=== PATIENT | male | born 1955 | race Caucasian/White ===

== ENCOUNTER 2018-07-07 12:19 | Outpatient (REF) | payer BC, SELFPAY ==
[2018-07-11 10:07] LABS: PSA, Screening 1.2 ng/ml (0-4.5)
== END 2018-07-07 12:39 ==
LOC: NCHCN 12:19
PROVIDERS: PCP Internal Medicine; Visit Provider Physician Assistant Medical
DX: Z12.5 Encounter for screening for malignant neoplasm of prostate (principal); N40.0 Benign prostatic hyperplasia without lower urinary tract symptoms
CPT/HCPCS: 84153; 87086

== ENCOUNTER 2018-08-09 16:24 | Outpatient (CLI) | payer BC, SELFPAY ==
[2018-08-09 17:04] LABS: ALT 173 U/L (12-78); AST 479 U/L (15-37); Albumin 2.7 g/dL (3.4-5.0); Alkaline Phosphatase 330 U/L (46-116); BUN 38 mg/dL (7-18); CREATININE 1.03 mg/dL (0.70-1.30); Calcium 8.9 mg/dL (8.5-10.1); Chloride 94 mmol/L (98-107); Glucose 118 mg/dL (70-100); Sodium 147 mmol/L (136-145); Total Protein 5.7 g/dL (6.4-8.2)
[2018-08-09 17:17] LABS: Anion Gap 7.99999 mmol/L (3-11); CO2 > 45.0 mmol/L (21.0-32.0)
[2018-08-09 17:44] LABS: Potassium 1.9 mmol/L (3.5-5.1)
[2018-08-09 17:48] LABS: Abs Immature Grans 0.69 k/cumm (0.0-0.09); HCT 36.3 % (40.0-50.0); HGB 12.3 g/dL (13.5-17.5); Mean Corp. HGB Concentration 33.9 g/dL (32.0-36.0); Mean Corpuscular Hemoglobin 34.6 pg (27.0-33.0); Mean Platelet Volume 12.6 fL (8.0-11.0); RBC 3.56 m/cumm (4.50-6.00); RBC Distribution Width 14.1 % (11.8-14.1); White Blood Cell Count 16.95 k/cumm (4.4-10.8)
[2018-08-09 19:06] LABS: Platelet Count 47 x1000/uL (130-400)
[2018-08-09 19:07] LABS: Absolute Lymphocyte Count 0.51 k/cumm (1.2-3.4); Absolute Monocyte Count 0.34 k/cumm (0.11-0.7); Diff Comment Manual Differential; Nucleated RBC 1 /100WBC
[2018-08-09 19:14] LABS: Macrocytosis 2+
[2018-08-10 12:10] LABS: Magnesium 2.4 mg/dL (1.8-2.4)
== END 2018-08-09 16:44 ==
PROVIDERS: PCP Internal Medicine; Visit Provider Internal Medicine
DX: E87.6 Hypokalemia (principal); C34.90 Malignant neoplasm of unspecified part of unspecified bronchus or lung
CPT/HCPCS: 36415; 80053; 83735; 85025

== ENCOUNTER 2018-08-11 08:10 | Outpatient (CLI) | payer BC, SELFPAY ==
[2018-08-11 09:03] LABS: ALT 199 U/L (12-78); AST 309 U/L (15-37); Albumin 2.5 g/dL (3.4-5.0); Alkaline Phosphatase 351 U/L (46-116); BUN 35 mg/dL (7-18); Bilirubin, Total 1.4 mg/dL (0.2-1.0); Calcium 8.3 mg/dL (8.5-10.1); Chloride 98 mmol/L (98-107); Glucose 119 mg/dL (70-100); Magnesium 2.1 mg/dL (1.8-2.4); Sodium 145 mmol/L (136-145); Total Protein 5.4 g/dL (6.4-8.2)
[2018-08-11 09:07] LABS: Anion Gap 1.99999 mmol/L (3-11); CO2 > 45.0 mmol/L (21.0-32.0)
[2018-08-11 09:10] LABS: Potassium 2.3 mmol/L (3.5-5.1)
== END 2018-08-11 08:30 ==
PROVIDERS: PCP Internal Medicine; Visit Provider Internal Medicine
DX: C78.7 Secondary malignant neoplasm of liver and intrahepatic bile duct (principal); E87.6 Hypokalemia
CPT/HCPCS: 36415; 80053; 83735

== ENCOUNTER 2018-08-12 00:58 | Outpatient (CLI) | payer BC, SELFPAY ==
[2018-08-12 08:10] LABS: Abs Immature Grans 0.09 k/cumm (0.0-0.09); Absolute Basophil Count 0.01 k/cumm (0.0-0.2); Absolute Eosinophil Count 0.02 k/cumm (0.0-0.7); Absolute Lymphocyte Count 0.56 k/cumm (1.2-3.4); Absolute Neutrophil Count 9.14 k/cumm (1.2-6.7); Basophils % 0.1; Eosinophils % 0.2; HCT 27.8 % (40.0-50.0); HGB 9.3 g/dL (13.5-17.5); Immature Grans % 0.9; Lymphocytes % 5.6; Mean Corp. HGB Concentration 33.5 g/dL (32.0-36.0); Mean Corpuscular Hemoglobin 34.4 pg (27.0-33.0); Mean Platelet Volume 11.7 fL (8.0-11.0); Neutrophils % 91.2; RBC Distribution Width 13.8 % (11.8-14.1); White Blood Cell Count 10.02 k/cumm (4.4-10.8)
[2018-08-12 08:16] LABS: ALT 188 U/L (12-78); AST 173 U/L (15-37); Albumin 2.4 g/dL (3.4-5.0); Alkaline Phosphatase 289 U/L (46-116); Anion Gap 2.4 mmol/L (3-11); BUN 36 mg/dL (7-18); CO2 42.6 mmol/L (21.0-32.0); CREATININE 0.69 mg/dL (0.70-1.30); Calcium 8.1 mg/dL (8.5-10.1); Chloride 101 mmol/L (98-107); Glucose 119 mg/dL (70-100); Magnesium 2.1 mg/dL (1.8-2.4); Sodium 146 mmol/L (136-145); Total Protein 5.1 g/dL (6.4-8.2)
[2018-08-12 09:21] LABS: Potassium 2.5 mmol/L (3.5-5.1)
[2018-08-12 09:31] LABS: Platelet Count 15 x1000/uL (130-400)
[2018-08-12 09:34] LABS: Diff Comment PLT Morph Reviewed; Macrocytosis 1+; Polychromasia Present
== END 2018-08-12 01:18 ==
PROVIDERS: PCP Internal Medicine; Visit Provider Internal Medicine
DX: C78.7 Secondary malignant neoplasm of liver and intrahepatic bile duct (principal); E87.6 Hypokalemia
CPT/HCPCS: 36415; 80053; 83735; 85025

== ENCOUNTER 2018-08-12 12:20 | Emergency (ER) | payer BC, SELFPAY ==
[2018-08-12] VITALS (78 sets, daily range): BP systolic 156–171; BP diastolic 76–87; PULSE 80–95; RESP 11–30; TEMP 37; O2SAT 83–96
[2018-08-12 13:14] LABS: Abs Immature Grans 0.06 k/cumm (0.0-0.09); Absolute Basophil Count 0.01 k/cumm (0.0-0.2); Absolute Eosinophil Count 0.03 k/cumm (0.0-0.7); Absolute Lymphocyte Count 0.56 k/cumm (1.2-3.4); Absolute Monocyte Count 0.18 k/cumm (0.11-0.7); Absolute Neutrophil Count 8.54 k/cumm (1.2-6.7); Basophils % 0.1; Eosinophils % 0.3; HCT 26.6 % (40.0-50.0); HGB 8.8 g/dL (13.5-17.5); Immature Grans % 0.6; Mean Corp. HGB Concentration 33.1 g/dL (32.0-36.0); Mean Corpuscular Hemoglobin 34.4 pg (27.0-33.0); Mean Corpuscular Volume 103.9 fL (80-95); Monocytes % 1.9; Neutrophils % 91.1; RBC 2.56 m/cumm (4.50-6.00); RBC Distribution Width 13.9 % (11.8-14.1); White Blood Cell Count 9.38 k/cumm (4.4-10.8)
[2018-08-12 13:20] LABS: INR 1.1 (1.0-3.5); PTT Activated 18.7 sec (21.0-31.4); Prothrombin Time 10.3 sec (9.3-10.8)
[2018-08-12 13:37] LABS: Diff Comment PLT Morph Reviewed; Platelet Count 12 x1000/uL (130-400)
[2018-08-12 13:39] LABS: ALT 184 U/L (12-78); AST 160 U/L (15-37); Albumin 2.3 g/dL (3.4-5.0); Alkaline Phosphatase 272 U/L (46-116); Anion Gap 3.9 mmol/L (3-11); BUN 37 mg/dL (7-18); Bilirubin, Total 0.8 mg/dL (0.2-1.0); CO2 40.1 mmol/L (21.0-32.0); CREATININE 0.63 mg/dL (0.70-1.30); Calcium 7.8 mg/dL (8.5-10.1); Chloride 103 mmol/L (98-107); D-Dimer > 7500 ng/mlFEU (<500); Glucose 157 mg/dL (70-100); Sodium 147 mmol/L (136-145); Total Protein 4.9 g/dL (6.4-8.2); Troponin I 0.04 ng/mL (0.00-0.06)
[2018-08-12 13:43] LABS: Potassium 2.4 mmol/L (3.5-5.1)
--- NOTE | 2018-08-12 13:49 | DI.CT_ITS ---
SYMPTOMS/DIAGNOSIS: COUGH, SHORTNESS OF BREATH, CANCER, HX OF MAC, CHEST PAIN, GI BLEED CHEST, ABDOMEN AND PELVIS CTA: CT angiography was performed with multi slice acquisition and multi planar and 3D reconstruction. CT angiography of the chest, abdomen and pelvis was performed with intravenous infusion of 100 cc's of Omnipaque 350. The patient reportedly has known lung carcinoma. There is a large right hilar mass which markedly narrows the right upper lobe pulmonary artery and portions of right lower and middle lobe arteries proximally. No pulmonary embolism identified. There are multiple intrapulmonary nodules. The largest a pleural based nodule seen anteriorly in the right upper lobe measuring up to about 3 cm in greatest diameter. There are severe pulmonary emphysematous changes. There is a moderate size right pleural effusion and a tiny left pleural effusion. No thoracic aortic dissection or aneurysm identified. There appears to be mild narrowing of right upper lobe pulmonary artery and this is encased by tumor. Otherwise the tracheobronchial tree appears grossly intact. There is an apparent nonocclusive dissection of the celiac trunk. No additional dissection or aneurysm identified in the abdominal aorta or main branch vessels to the level of the iliac bifurcations. Note is made of contrast material in the stomach. The patient has reportedly had no oral contrast material and the patient reported GI bleed. The findings are suggestive of acute arterial bleeding in the stomach. There is an approximately 3 cm in diameter right adrenal mass. The findings are highly suggestive of metastatic disease with a heterogeneous appearance of the mass. Areas of questionable heterogeneity also noted in the liver, possible hepatic metastatic disease. The kidneys are grossly unremarkable except for bilateral renal cysts. The pancreas is unremarkable. No biliary dilatation seen. The gallbladder is contracted. No gross abdominal adenopathy seen. There is mild anterior compression fracture of the T 12 vertebral body and there is an apparent lytic lesion of the vertebral body suspicious for metastatic lesion. Rounded lytic focus is also noted in L 3 vertebral body and there are multiple other areas of vertebral decreased attenuation in thoracic and lumbar spine which may represent metastatic lesions. CONCLUSION: 1. No evidence of pulmonary embolic disease but there is marked narrowing of right upper lobe pulmonary artery by known right hilar/mediastinal mass. 2. Apparent acute arterial hemorrhage into the gastric lumen. 3. Multiple presumed intrapulmonary metastases. 4. T 12 pathologic compression fracture consistent with metastatic disease, no gross deformity of the spinal canal seen. 5. Multiple additional suspected vertebral metastatic lesions. 6. Presumed right adrenal metastasis. 7. Probable hepatic metastases.
[2018-08-12 13:56] LABS: Bilirubin Negative (Negative); Blood Small (Negative); Clarity Clear; Glucose Negative (Negative); Ketones Negative (Negative); Leukocyte Esterase Negative (Negative); Nitrite Negative (Negative); Specific Gravity 1.015 (1.005-1.025)
[2018-08-12 14:09] LABS: Epithelial Cells Rare HPF (Negative); WBC 0-2 HPF (0-5)
[2018-08-12 14:10] LABS: Bacteria Negative HPF (Negative); C & S Indicated? No; Casts Negative LPF (Negative); Crystals Few Amorphous HPF (Negative); Mucus Trace (Negative)
[2018-08-12] MEDS: Pantoprazole 40 MG VIAL IVP (14:16)
[2018-08-12] MEDS: POTASSIUM CHLORIDE 20 MEQ/100 ML BAG 50 MEQ IVPB (14:16)
[2018-08-12] MEDS: Potassium Chloride 20 MEQ TABCR 40 MEQ PO (14:17)
[2018-08-12] MEDS: Omnipaque 350 MG/ML 100 ML BTL IJ (14:40)
--- NOTE | 2018-08-12 14:40 | ED.GENADUL_ITS ---
Discharge Plan Disposition Patient Disposition: [facility] Condition: Serious Discharge Details Chief Complaint: GI Bleed Clinical Impression: Acute hypokalemia, Thrombocytopenia, Acute upper gastrointestinal bleeding, Celiac artery dissection, Lung cancer Reason For Visit: ERIKA Primary Care Provider: Shayne Fernandes ED Provider: Michael Joe Home Meds and New Rx's Prescriptions: No Action prednisolone 5 mg (21 tabs) Tablets,Dose Pack 5 mg PO DAILY RF: 0 fluoxetine 40 mg Capsule 40 mg PO DAILY RF: 0 metoprolol succinate 100 mg Tablet Extended Release 24 Hr 100 mg PO DAILY RF: 0 clonazepam 1 mg Tablet 1 mg PO DAILY RF: 0 tamsulosin 0.4 mg Capsule 0.4 mg PO DAILY RF: 0 furosemide 20 mg Tablet 20 mg PO DAILY RF: 0 tiotropium bromide [Spiriva Respimat] 2.5 mcg/actuation Mist 2.5 mcg Inhalation DAILY RF: 0 fluticasone-vilanterol [Breo Ellipta] 100-25 mcg/dose Blister With Device 100 mcg Inhalation DAILY RF: 0 Medical Decision Making This is a 63-year-old male with a 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 This morning he noticed a few episodes of dark tarry stool with some bright red blood. Oncology noted that his platelets were 248 in February, 47 3 days ago, and 13 today. His hemoglobin was 15 in February, 12, 3 days ago, and 8.8 today. Additionally the patient does complain of some chest pain. Here in the emergency department the patient is hemodynamically stable. Laboratory workup clearly demonstrates an acute drop in his hemoglobin and his platelets. He has no abdominal pain or tenderness on exam. I started the patient on Protonix, rehydrated with fluids, and have ordered platelets however unfortunately there are no platelets currently here at the hospital and so they have to be sent from the [facility]. This process was immediately started upon the patient's arrival. With his chest pain and risk for pulmonary embolism we did elect to get a d-dimer which is notably elevated. CT angiogram was ordered of the chest abdomen and pelvis, which demonstrates multiple abnormalities, some of which are known. The patient has a known mass, it is compressing on the pulmonary artery. Over there is no evidence of pulmonary embolism. Patient also does show evidence concerning for celiac artery dissection per radiology. In addition to this there appears to be some contrast in the patient's stomach, this was a non-oral contrast study suggesting an active GI bleed in the upper stomach. The patient's current hemoglobin level it is felt that additional blood is not indicated at this time however platelets are clearly our primary concern. EKG does show evidence of questionable 1 mm depression in V4 but no reciprocal ST elevation. Troponin is 0.04. Clearly the patient is not a candidate for heparinization or TPA at this time secondary to his thrombocytopenia and active bleeding which could be life- threatening. He continues to remain hemodynamically stable. Potassium is noted to be 2.4, and we are correcting this with 40 of oral, and 20 of IV at this time. Additionally the patient's BUN creatinine ratio demonstrates notable elevation in his BUN suggesting a bleed proximal to the ligament of Treitz which I feel is confirmed by the CT scan findings. Because of the patient's clear need for endoscopy we did contact [facility]. I discussed the case with both the hospitalist and the fine arts instructor Dr Russell and Dr Swenson. The case was reviewed with them, including the patient's current status. Although they have no [facility] beds, with the patient's multiple comorbidities and issues I did suggest that the patient be admitted to the stepdown unit and they agree, they do have beds in the stepdown unit available. Patient will be transferred by [facility] to [facility] immediately. Initially by the time [facility] was supposed to arrive the platelets only 45 minutes out, however [facility] did contact myself on the person transferring the platelets and they are over an hour and 15 minutes away still. Because of the patient's clear need for definitive management with endoscopy, we discussed this with the fine arts instructor and they agree and recommend immediate transfer down. I have extensively reviewed the treatment plan with the patient. I have addressed all patient concerns at this time. I have also discussed the plan with the admitting physician and they agree with the current assessment and plan and have agreed to assume responsibility for the patient. All parties demonstrate verbal understanding and agreement with our assessment and plan at this time. EKG 12: 24 Rate 83, intervals normal, sinus rhythm, questionable 1 mm depression in V5, less than 1 mm depression in V4, no ST elevations. Inverted T wave in V1 and V3. No Q waves. No EKG evidence of STEMI. Patient Name: PHYLLIS GIRFFIN #: [id number]: ER Ordering Provider: Michael Joe #: [id number]: REG ER Primary Care Provider: Shayne Fernandes Date of Exam: 08/12/18ex: M : 1955ge: 63 Exam(s) a CT:CT thorax & abdomen CTA SYMPTOMS/DIAGNOSIS: COUGH, SHORTNESS OF BREATH, CANCER, HX OF MAC, CHEST PAIN, GI BLEED CHEST, ABDOMEN AND PELVIS CTA: CT angiography was performed with multi slice acquisition and multi planar and 3D reconstruction. CT angiography of the chest, abdomen and pelvis was performed with intravenous infusion of 100 cc's of Omnipaque 350. The patient reportedly has known lung carcinoma. There is a large right hilar mass which markedly narrows the right upper lobe pulmonary artery and portions of right lower and middle lobe arteries proximally. No pulmonary embolism identified. There are multiple intrapulmonary nodules. The largest a pleural based nodule seen anteriorly in the right upper lobe measuring up to about 3 cm in greatest diameter. There are severe pulmonary emphysematous changes. There is a moderate size right pleural effusion and a tiny left pleural effusion. No thoracic aortic dissection or aneurysm identified. There appears to be mild narrowing of right upper lobe pulmonary artery and this is encased by tumor. Otherwise the tracheobronchial tree appears grossly intact. There is an apparent nonocclusive dissection of the celiac trunk. No additional dissection or aneurysm identified in the abdominal aorta or main branch vessels to the level of the iliac bifurcations. Note is made of contrast material in the stomach. The patient has reportedly had no oral contrast material and the patient reported GI bleed. The findings are suggestive of acute arterial bleeding in the stomach. There is an approximately 3 cm in diameter right adrenal mass. The findings are highly suggestive of metastatic disease with a heterogeneous appearance of the mass. Areas of questionable heterogeneity also noted in the liver, possible hepatic metastatic disease. The kidneys are grossly unremarkable except for bilateral renal cysts. The pancreas is unremarkable. No biliary dilatation seen. The gallbladder is contracted. No gross abdominal adenopathy seen. There is mild anterior compression fracture of the T 12 vertebral body and there is an apparent lytic lesion of the vertebral body suspicious for metastatic lesion. Rounded lytic focus is also noted in L 3 vertebral body and there are multiple other areas of vertebral decreased attenuation in thoracic and lumbar spine which may represent metastatic lesions. CONCLUSION: 1. No evidence of pulmonary embolic disease but there is marked narrowing of right upper lobe pulmonary artery by known right hilar/mediastinal mass. 2. Apparent acute arterial hemorrhage into the gastric lumen. 3. Multiple presumed intrapulmonary metastases. 4. T 12 pathologic compression fracture consistent with metastatic disease, no gross deformity of the spinal canal seen. 5. Multiple additional suspected vertebral metastatic lesions. 6. Presumed right adrenal metastasis. 7. Probable hepatic metastases. HPI General Date/Time Provider Initiated Documentation: 08/12/18 12:32 . HPI Narrative: This is a 63-year-old male with a past medical history of Mycobacterium avium complex for which she has not taken antibiotics for the last 2 weeks, COPD, hemochromatosis, small cell lung cancer who is on day 2 of 3 for chemotherapy with carboplatin and etoposide who receives his oncology management at [facility]. He presents today after being sent by oncology for thrombus cytopenia and GI bleed as well as some chest pain and shortness of breath. Patient states that last night and this morning he noticed some dark tarry stool as well as some bright red blood in his stool. He has never had a GI bleed before, and denies any history of this in the past. He denies any abdominal pain, or vomiting. Chest pain started prior to arrival, he describes it as a mild pressure-like sensation with mild shortness of breath. Potential pleuritic component as well. He denies any hemoptysis, but he does admit to a cough however this is obfuscated by his chronic pulmonary symptoms from his Mycobacterium avium complex for which she was receiving treatment for many weeks. Of note the patient has been dealing with chronic hypo-Kalemia. The patient denies any other complaints at this time. He denies any other modifying factors. He denies any fevers, chills, history of PE, cardiac disease , history of GI bleed, or other complaint. The patient quit smoking within the past 6 months. He denies any IV or illicit drug use per Related Data Home Medications Medication Instructions Recorded Confirmed clonazepam 1 mg PO DAILY 08/12/18 08/12/18 fluoxetine 40 mg PO DAILY 08/12/18 08/12/18 fluticasone-vilanterol [Breo 100 mcg INHALATION DAILY 08/12/18 08/12/18 Ellipta] furosemide 20 mg PO DAILY 08/12/18 08/12/18 metoprolol succinate 100 mg PO DAILY 08/12/18 08/12/18 prednisolone 5 mg PO DAILY 08/12/18 08/12/18 tamsulosin 0.4 mg PO DAILY 08/12/18 08/12/18 tiotropium bromide [Spiriva 2.5 mcg INHALATION DAILY 08/12/18 08/12/18 Respimat] Allergies Allergy/AdvReac Type Severity Reaction Status Date / Time Penicillins Allergy Severe Unverified 08/12/18 12:58 General Stated Complaint: GI Bleed LUCY: 2 Review of Systems Review of Systems All systems reviewed & are unremarkable except as noted in HPI and below PFSH Social History Smoking/Tobacco Use Status: Former Tobacco Use Social History Smoking/Tobacco Use Status: Former Tobacco Use Exam Narrative Exam Narrative: 1.Const: Well-nourished, Well-developed, appearing stated age 2.Eyes: PERRL, no conjunctival injection, and symmetrical lids. 3.ENT: Atraumatic external nose and ears. Moist MM. Neck: Symmetric, trachea midline, No thyromegaly. 4.CVS: +S1/S2, No murmurs or gallops. Peripheral pulses 2+ and equal in all extremities. Brisk capillary refill in all extremities. 5.RESP: Unlabored respiratory effort. Rhonchorous breath sounds throughout. Crackles throughout. No reproducible chest pain. 6.GI: Soft, Nontender/Nondistended, No hepatosplenomegaly. No guarding or rebound. Rectal exam demonstrates no sugey blood, stool is slightly darker in color. Hemoccult is positive. 7.MSK: Normocephalic/Atraumatic, Extremities w/o deformity or ttp No cyanosis or clubbing, Normal movement of all extremities. No calf tenderness 8.Skin: Warm, Dry. No rashes or lesions. 9.Neuro: cake cutter machine II-XII grossly intact. Sensation grossly intact, no focal neurologic deficits. 10.Psych: (AAO) x3. Appropriate mood and affect Course Vital Signs Temperature 37.0 C 08/12/18 12:17 Pulse 84 08/12/18 12:17 Respiratory Rate 24 08/12/18 12:17 Blood Pressure 169/83 H 08/12/18 12:17 Pulse Oximetry 94 L 08/12/18 12:17 Temperature 37.0 C 08/12/18 12:17 Temperature Source Skin 08/12/18 12:17 Pulse 81 08/12/18 13:46 Pulse 81 08/12/18 14:00 Respiratory Rate 19 08/12/18 14:00 Blood Pressure 171/85 H 08/12/18 13:46 Blood Pressure Mean 107 08/12/18 13:46 Blood Pressure Position Supine 08/12/18 12:17 Pulse Oximetry 94 L 08/12/18 14:00 Oxygen Delivery Method Nasal Cannula 08/12/18 13:41 Oxygen Flow Rate 2 08/12/18 13:41 Comment 08/12/18 12:17 Lab/Test Results Lab/Test Results: Laboratory Tests Range/Units 08/12/18 08/12/18 08/12/18 12:40 12:40 12:40 WBC (4.4-10.8) k/cumm 9.38 RBC (4.50-6.00) m/cumm 2.56 L Hgb (13.5-17.5) g/dL 8.8 L Hct (40.0-50.0) % 26.6 L MCV (80-95) fL 103.9 H MCH (27.0-33.0) pg 34.4 H MCHC (32.0-36.0) g/dL 33.1 RDW (11.8-14.1) % 13.9 Plt Count (130-400) x1000/uL 12 L* MPV (8.0-11.0) fL Immature Gran % 0.6 Neutrophils % 91.1 Lymphocytes % 6.0 Monocytes % 1.9 Eosinophils % 0.3 Basophils % 0.1 Absolute Neutrophils (1.2-6.7) k/cumm 8.54 H Absolute Lymphocytes (1.2-3.4) k/cumm 0.56 L Absolute Monocytes (0.11-0.7) k/cumm 0.18 Absolute Eosinophils (0.0-0.7) k/cumm 0.03 Absolute Basophils (0.0-0.2) k/cumm 0.01 Differential Comment Plt morph reviewed PT (9.3-10.8) sec 10.3 INR (1.0-3.5) 1.1 APTT (21.0-31.4) sec 18.7 L D-Dimer (<500) ng/mlFEU > 7500 H Sodium (136-145) mmol/L 147 H Potassium (3.5-5.1) mmol/L 2.4 L* Chloride (98-107) mmol/L 103 Carbon Dioxide (21.0-32.0) mmol/L 40.1 H Anion Gap (3-11) mmol/L 3.9 BUN (7-18) mg/dL 37 H Creatinine (0.70-1.30) mg/dL 0.63 L Estimated GFR/1.73 m2 (mL/min/1.73m2) >= 60.00 Glucose (70-100) mg/dL 157 H Calcium (8.5-10.1) mg/dL 7.8 L Total Bilirubin (0.2-1.0) mg/dL 0.8 AST (15-37) U/L 160 H ALT (12-78) U/L 184 H Alkaline Phosphatase (46-116) U/L 272 H Troponin I (0.00-0.06) ng/mL 0.04 Total Protein (6.4-8.2) g/dL 4.9 L Albumin (3.4-5.0) g/dL 2.3 L Urine Color (Yellow) Urine Clarity Urine pH (5-8) Ur Specific [place] (1.005-1.025) Urine Protein (Negative) mg/dL Urine Ketones (Negative) mg/dL Urine Blood (Negative) Urine Nitrite (Negative) Urine Bilirubin (Negative) Urine Urobilinogen (Up TO 0.2) EU/dL Ur Leukocyte Esterase (Negative) Urine RBC (0-2) Urine WBC (0-5) HPF Ur Epithelial Cells (Negative) HPF Urine Crystals (Negative) HPF Urine Bacteria (Negative) HPF Urine Casts (Negative) LPF Urine Mucus (Negative) Ur Culture Indicated? Urine Glucose (Negative) mg/dL Patient ABO/Rh Antibody Screen Range/Units 08/12/18 08/12/18 12:40 13:48 WBC (4.4-10.8) k/cumm RBC (4.50-6.00) m/cumm Hgb (13.5-17.5) g/dL Hct (40.0-50.0) % MCV (80-95) fL MCH (27.0-33.0) pg MCHC (32.0-36.0) g/dL RDW (11.8-14.1) % Plt Count (130-400) x1000/uL MPV (8.0-11.0) fL Immature Gran % Neutrophils % Lymphocytes % Monocytes % Eosinophils % Basophils % Absolute Neutrophils (1.2-6.7) k/cumm Absolute Lymphocytes (1.2-3.4) k/cumm Absolute Monocytes (0.11-0.7) k/cumm Absolute Eosinophils (0.0-0.7) k/cumm Absolute Basophils (0.0-0.2) k/cumm Differential Comment PT (9.3-10.8) sec INR (1.0-3.5) APTT (21.0-31.4) sec D-Dimer (<500) ng/mlFEU Sodium (136-145) mmol/L Potassium (3.5-5.1) mmol/L Chloride (98-107) mmol/L Carbon Dioxide (21.0-32.0) mmol/L Anion Gap (3-11) mmol/L BUN (7-18) mg/dL Creatinine (0.70-1.30) mg/dL Estimated GFR/1.73 m2 (mL/min/1.73m2) Glucose (70-100) mg/dL Calcium (8.5-10.1) mg/dL Total Bilirubin (0.2-1.0) mg/dL AST (15-37) U/L ALT (12-78) U/L Alkaline Phosphatase (46-116) U/L Troponin I (0.00-0.06) ng/mL Total Protein (6.4-8.2) g/dL Albumin (3.4-5.0) g/dL Urine Color (Yellow) Yellow Urine Clarity Clear Urine pH (5-8) 7.0 Ur Specific [place] (1.005-1.025) 1.015 Urine Protein (Negative) mg/dL 30 H Urine Ketones (Negative) mg/dL Negative Urine Blood (Negative) Small H Urine Nitrite (Negative) Negative Urine Bilirubin (Negative) Negative Urine Urobilinogen (Up TO 0.2) EU/dL 2.0 H Ur Leukocyte Esterase (Negative) Negative Urine RBC (0-2) 10-20 H Urine WBC (0-5) HPF 0-2 Ur Epithelial Cells (Negative) HPF Rare Urine Crystals (Negative) HPF Few amorphous Urine Bacteria (Negative) HPF Negative Urine Casts (Negative) LPF Negative Urine Mucus (Negative) Trace Ur Culture Indicated? No Urine Glucose (Negative) mg/dL Negative Patient ABO/Rh A Positive Antibody Screen Negative
--- NOTE | 2018-08-12 15:26 | NUR.NOTE ---
pt unable to provide stool sample. pt attempted 3 2 times over duration of stay Nursing Note:
== END 2018-08-12 15:17 | disposition short-term general hospital (02) ==
PROVIDERS: Emergency Provider Student in an Organized Health Care Education/Training Program; PCP Internal Medicine
DX: I77.79 Dissection of other specified artery (principal); K92.2 Gastrointestinal hemorrhage, unspecified; D69.6 Thrombocytopenia, unspecified; E87.6 Hypokalemia; R07.9 Chest pain, unspecified; Z79.899 Other long term (current) drug therapy; C34.90 Malignant neoplasm of unspecified part of unspecified bronchus or lung; J44.9 Chronic obstructive pulmonary disease, unspecified; Z87.891 Personal history of nicotine dependence; R06.02 Shortness of breath
CPT/HCPCS: 36415; 71275; 74175; 80053; 86850; 86900; 86901; 93005; 96365; 96375; 99285; 81003; 81015; 84484; 85025; 85379; 85610; 85730; 93010; J3480; J3490

== ENCOUNTER 2018-09-09 13:30 | Outpatient (RCR) | payer BC, SELFPAY ==
[2018-09-02 08:30] LABS: Abs Immature Grans 0.12 k/cumm (0.0-0.09); Absolute Basophil Count 0.02 k/cumm (0.0-0.2); Absolute Monocyte Count 1.26 k/cumm (0.11-0.7); Absolute Neutrophil Count 16.62 k/cumm (1.2-6.7); Basophils % 0.1; HCT 30.6 % (40.0-50.0); HGB 9.8 g/dL (13.5-17.5); Immature Grans % 0.6; Mean Corpuscular Hemoglobin 35.6 pg (27.0-33.0); Mean Corpuscular Volume 111.3 fL (80-95); Mean Platelet Volume 10.3 fL (8.0-11.0); Monocytes % 6.8; Neutrophils % 89.5; RBC 2.75 m/cumm (4.50-6.00); White Blood Cell Count 18.57 k/cumm (4.4-10.8)
[2018-09-02 08:34] LABS: Absolute Lymphocyte Count 0.56 k/cumm (1.2-3.4)
[2018-09-02 08:44] LABS: Anisocytosis 3+; Diff Comment RBC Morph Reviewed; Macrocytosis 2+; Microcytosis 1+; Platelet Count 333 x1000/uL (130-400); Polychromasia Present
[2018-09-02 08:45] LABS: Poikilocytes 1+
[2018-09-02 08:57] LABS: ALT 100 U/L (12-78); AST 46 U/L (15-37); Albumin 2.4 g/dL (3.4-5.0); Alkaline Phosphatase 153 U/L (46-116); Anion Gap 6.3 mmol/L (3-11); BUN 25 mg/dL (7-18); Bilirubin, Total 0.5 mg/dL (0.2-1.0); CO2 34.7 mmol/L (21.0-32.0); CREATININE 0.74 mg/dL (0.70-1.30); Calcium 8.6 mg/dL (8.5-10.1); Chloride 104 mmol/L (98-107); Glucose 121 mg/dL (70-100); Potassium 3.8 mmol/L (3.5-5.1); Sodium 145 mmol/L (136-145); Total Protein 5.6 g/dL (6.4-8.2)
[2018-09-02] MEDS: Normal Saline Flush 10 ML SYR IVP (09:01)
[2018-09-09] MEDS: Normal Saline Flush 10 ML SYR IVP (13:40)
[2018-09-09] MEDS: Heparin 500 UNITS/5 ML SYRINGE IV (13:40)
[2018-09-09 14:16] LABS: Abs Immature Grans 0.04 k/cumm (0.0-0.09); Absolute Lymphocyte Count 1.25 k/cumm (1.2-3.4); Absolute Monocyte Count 0.35 k/cumm (0.11-0.7); Absolute Neutrophil Count 3.61 k/cumm (1.2-6.7); HCT 27.8 % (40.0-50.0); HGB 8.7 g/dL (13.5-17.5); Immature Grans % 0.8; Lymphocytes % 23.8; Mean Corp. HGB Concentration 31.3 g/dL (32.0-36.0); Mean Corpuscular Hemoglobin 35.1 pg (27.0-33.0); Mean Corpuscular Volume 112.1 fL (80-95); Mean Platelet Volume 10.1 fL (8.0-11.0); Monocytes % 6.7; Neutrophils % 68.7; Platelet Count 242 x1000/uL (130-400); RBC 2.48 m/cumm (4.50-6.00); RBC Distribution Width 19.8 % (11.8-14.1); White Blood Cell Count 5.25 k/cumm (4.4-10.8)
[2018-09-09 14:31] LABS: ALT 69 U/L (12-78); AST 25 U/L (15-37); Albumin 2.4 g/dL (3.4-5.0); Alkaline Phosphatase 149 U/L (46-116); Anion Gap 3.3 mmol/L (3-11); BUN 16 mg/dL (7-18); Bilirubin, Total 0.3 mg/dL (0.2-1.0); CO2 33.7 mmol/L (21.0-32.0); CREATININE 0.89 mg/dL (0.70-1.30); Chloride 103 mmol/L (98-107); Glucose 120 mg/dL (70-100); Potassium 4.6 mmol/L (3.5-5.1); Sodium 140 mmol/L (136-145); Total Protein 6.1 g/dL (6.4-8.2)
== END 2018-09-12 23:59 | disposition home or self-care (01) ==
LOC: INF 13:30
PROVIDERS: PCP Internal Medicine; Visit Provider Internal Medicine
DX: C78.7 Secondary malignant neoplasm of liver and intrahepatic bile duct (principal); C34.90 Malignant neoplasm of unspecified part of unspecified bronchus or lung; E87.6 Hypokalemia; Z45.2 Encounter for adjustment and management of vascular access device
CPT/HCPCS: 36591; 80053; 85025

== ENCOUNTER 2018-10-10 01:18 | Outpatient (RCR) | payer BC, SELFPAY ==
[2018-09-19] MEDS: Normal Saline Flush 10 ML SYR IVP (12:12)
[2018-09-19] MEDS: Heparin 500 UNITS/5 ML SYRINGE IV (12:12)
[2018-09-19 12:20] LABS: HCT 34.3 % (40.0-50.0); HGB 11.1 g/dL (13.5-17.5); Mean Corp. HGB Concentration 32.4 g/dL (32.0-36.0); Mean Corpuscular Hemoglobin 36.3 pg (27.0-33.0); Mean Corpuscular Volume 112.1 fL (80-95); Mean Platelet Volume 9.3 fL (8.0-11.0); Platelet Count 419 x1000/uL (130-400); RBC 3.06 m/cumm (4.50-6.00); RBC Distribution Width 20.5 % (11.8-14.1); White Blood Cell Count 5.35 k/cumm (4.4-10.8)
[2018-09-19 12:32] LABS: ALT 65 U/L (12-78); AST 27 U/L (15-37); Albumin 2.8 g/dL (3.4-5.0); Alkaline Phosphatase 200 U/L (46-116); Anion Gap 6.6 mmol/L (3-11); BUN 23 mg/dL (7-18); Bilirubin, Total 0.3 mg/dL (0.2-1.0); CO2 32.4 mmol/L (21.0-32.0); CREATININE 0.83 mg/dL (0.70-1.30); Calcium 9.1 mg/dL (8.5-10.1); Chloride 103 mmol/L (98-107); Glucose 103 mg/dL (70-100); LDH 336 U/L (85-227); Potassium 3.4 mmol/L (3.5-5.1); Sodium 142 mmol/L (136-145); Total Protein 6.2 g/dL (6.4-8.2)
[2018-09-19 12:38] LABS: Absolute Lymphocyte Count 1.12 k/cumm (1.2-3.4); Absolute Monocyte Count 1.18 k/cumm (0.11-0.7); Absolute Neutrophil Count 2.35 k/cumm (1.2-6.7)
[2018-09-19 12:39] LABS: Anisocytosis 3+; Diff Comment Manual Differential; Hypochromasia 2+; Macrocytosis 2+; Microcytosis 1+; Polychromasia Present; Schistocytes 1+
[2018-09-19 12:40] LABS: Poikilocytes 2+
[2018-10-10] MEDS: Normal Saline Flush 10 ML SYR IVP (12:04)
[2018-10-10] MEDS: Heparin 500 UNITS/5 ML SYRINGE IV (12:04)
[2018-10-10 12:10] LABS: HCT 31.1 % (40.0-50.0); Mean Corp. HGB Concentration 32.2 g/dL (32.0-36.0); Mean Corpuscular Hemoglobin 36.6 pg (27.0-33.0); Mean Corpuscular Volume 113.9 fL (80-95); Mean Platelet Volume 9.6 fL (8.0-11.0); Platelet Count 351 x1000/uL (130-400); RBC 2.73 m/cumm (4.50-6.00); RBC Distribution Width 19.2 % (11.8-14.1)
[2018-10-10 12:20] LABS: ALT 47 U/L (12-78); AST 31 U/L (15-37); Albumin 2.8 g/dL (3.4-5.0); Alkaline Phosphatase 220 U/L (46-116); Anion Gap 8.2 mmol/L (3-11); BUN 20 mg/dL (7-18); Bilirubin, Total 0.2 mg/dL (0.2-1.0); CO2 30.8 mmol/L (21.0-32.0); CREATININE 0.89 mg/dL (0.70-1.30); Chloride 103 mmol/L (98-107); Glucose 100 mg/dL (70-100); LDH 580 U/L (85-227); Potassium 4.3 mmol/L (3.5-5.1); Sodium 142 mmol/L (136-145); Total Protein 6.4 g/dL (6.4-8.2)
[2018-10-10 12:43] LABS: White Blood Cell Count 39.55 k/cumm (4.4-10.8)
[2018-10-10 12:48] LABS: Absolute Lymphocyte Count 3.16 k/cumm (1.2-3.4); Absolute Monocyte Count 3.16 k/cumm (0.11-0.7); Absolute Neutrophil Count 30.85 k/cumm (1.2-6.7); Diff Comment Manual Differential; Nucleated RBC 2 /100WBC; Promyelocytes % 1 %
[2018-10-10 12:49] LABS: Anisocytosis 2+; Hypochromasia 1+; Macrocytosis 2+
== END 2018-10-13 23:59 | disposition home or self-care (01) ==
LOC: INF 01:18
PROVIDERS: PCP Internal Medicine; Visit Provider Internal Medicine
DX: C34.91 Malignant neoplasm of unspecified part of right bronchus or lung (principal); Z45.2 Encounter for adjustment and management of vascular access device
CPT/HCPCS: 36591; 80053; 83615; 85025

== ENCOUNTER 2018-10-10 13:45 | Outpatient (CLI) | payer BC, SELFPAY ==
--- NOTE | 2018-10-10 14:01 | DI.RAD_ITS ---
SYMPTOM/DIAGNOSIS: H/O SMALL CELL LUNG CA, ELEVATED WBC ? PNEUMONIA PA AND LATERAL CHEST: There are no prior comparison chest xrays. Comparison is made with chest CT of 08/12/18. A port is noted over the left chest. There are underlying emphysematous changes and pulmonary scarring. There has been marked interval improvement when compared with the chest CT of the appearance of the right perihilar mass as well as other densities seen in the right lung. No effusions are present. The heart size is normal. A T 12 compression fracture appears stable. IMPRESSION: Marked interval improvement of pulmonary mass and adenopathy.
== END 2018-10-10 14:05 ==
PROVIDERS: PCP Internal Medicine; Visit Provider Nurse Practitioner Family
DX: D72.829 Elevated white blood cell count, unspecified (principal); Z85.118 Personal history of other malignant neoplasm of bronchus and lung
CPT/HCPCS: 71046

== ENCOUNTER 2018-10-31 01:46 | Outpatient (RCR) | payer BC, SELFPAY ==
[2018-10-31 10:11] LABS: HCT 28.8 % (40.0-50.0); HGB 9.1 g/dL (13.5-17.5); Mean Corp. HGB Concentration 31.6 g/dL (32.0-36.0); Mean Corpuscular Hemoglobin 36.4 pg (27.0-33.0); Mean Corpuscular Volume 115.2 fL (80-95); Mean Platelet Volume 9.3 fL (8.0-11.0); Platelet Count 466 x1000/uL (130-400); RBC Distribution Width 18.2 % (11.8-14.1)
[2018-10-31] MEDS: Heparin 500 UNITS/5 ML SYRINGE IV (10:19)
[2018-10-31] MEDS: Normal Saline Flush 10 ML SYR IVP (10:19)
[2018-10-31 10:34] LABS: ALT 23 U/L (12-78); AST 23 U/L (15-37); Albumin 2.7 g/dL (3.4-5.0); Alkaline Phosphatase 160 U/L (46-116); BUN 14 mg/dL (7-18); Bilirubin, Total 0.1 mg/dL (0.2-1.0); CREATININE 0.97 mg/dL (0.70-1.30); Calcium 9.1 mg/dL (8.5-10.1); Chloride 105 mmol/L (98-107); Glucose 93 mg/dL (70-100); LDH 415 U/L (85-227); Potassium 4.4 mmol/L (3.5-5.1); Sodium 141 mmol/L (136-145); Total Protein 6.6 g/dL (6.4-8.2)
[2018-10-31 10:58] LABS: Absolute Neutrophil Count 26.43 k/cumm (1.2-6.7); Atypical Lymphocytes % 1; White Blood Cell Count 36.71 k/cumm (4.4-10.8)
[2018-10-31 10:59] LABS: Abs Immature Grans 4.77 k/cumm (0.0-0.09); Anisocytosis 2+; Diff Comment Manual Differential; Nucleated RBC 2 /100WBC
[2018-10-31 11:00] LABS: Macrocytosis 3+; Poikilocytes 1+; Polychromasia Present
== END 2018-11-10 23:59 | disposition home or self-care (01) ==
LOC: INF 01:46
PROVIDERS: PCP Internal Medicine; Visit Provider Nurse Practitioner Family
DX: C34.91 Malignant neoplasm of unspecified part of right bronchus or lung (principal); Z45.2 Encounter for adjustment and management of vascular access device
CPT/HCPCS: 36591; 80053; 83615; 85025

== ENCOUNTER 2018-11-29 01:47 | Outpatient (RCR) | payer BC, SELFPAY ==
[2018-11-29] MEDS: Normal Saline Flush 10 ML SYR IVP (13:55)
[2018-11-29 14:57] LABS: Abs Immature Grans 1.85 k/cumm (0.0-0.09); HCT 31.3 % (40.0-50.0); HGB 10.1 g/dL (13.5-17.5); Mean Corp. HGB Concentration 32.3 g/dL (32.0-36.0); Mean Corpuscular Hemoglobin 36.2 pg (27.0-33.0); Mean Corpuscular Volume 112.2 fL (80-95); Mean Platelet Volume 9.2 fL (8.0-11.0); Platelet Count 430 x1000/uL (130-400); RBC 2.79 m/cumm (4.50-6.00); RBC Distribution Width 16.3 % (11.8-14.1)
[2018-11-29 15:11] LABS: ALT 35 U/L (12-78); AST 26 U/L (15-37); Albumin 3.1 g/dL (3.4-5.0); Alkaline Phosphatase 188 U/L (46-116); Anion Gap 11.5 mmol/L (3-11); BUN 23 mg/dL (7-18); Bilirubin, Total 0.1 mg/dL (0.2-1.0); CO2 26.5 mmol/L (21.0-32.0); Calcium 8.9 mg/dL (8.5-10.1); Chloride 104 mmol/L (98-107); Glucose 111 mg/dL (70-100); Potassium 3.7 mmol/L (3.5-5.1); Sodium 142 mmol/L (136-145); Total Protein 6.9 g/dL (6.4-8.2)
[2018-11-29 15:21] LABS: White Blood Cell Count 31.32 k/cumm (4.4-10.8)
[2018-11-29 15:22] LABS: Absolute Lymphocyte Count 2.19 k/cumm (1.2-3.4); Absolute Monocyte Count 1.88 k/cumm (0.11-0.7); Absolute Neutrophil Count 24.74 k/cumm (1.2-6.7); Atypical Lymphocytes % 1; Diff Comment Manual Differential; Nucleated RBC 3 /100WBC
[2018-11-29 15:23] LABS: Macrocytosis 2+; Polychromasia Present
== END 2018-12-11 23:59 | disposition home or self-care (01) ==
LOC: INF 01:47
PROVIDERS: Internal Medicine; PCP Internal Medicine; Visit Provider Nurse Practitioner Family
DX: C34.91 Malignant neoplasm of unspecified part of right bronchus or lung (principal); Z45.2 Encounter for adjustment and management of vascular access device
CPT/HCPCS: 36591; 80053; 85025

== ENCOUNTER 2018-12-08 10:04 | Emergency (ER) | payer BC, SELFPAY ==
[2018-12-08] VITALS (52 sets, daily range): BP systolic 110–139; BP diastolic 66–89; PULSE 98–117; RESP 12–32; TEMP 36.7; O2SAT 95–100
--- NOTE | 2018-12-08 10:34 | ED.GENADUL_ITS ---
Discharge Plan Disposition Patient Disposition: HOME Condition: Stable Discharge Details Chief Complaint: Abd Prob Clinical Impression: Colitis, Dehydration, Lung metastases, Bone metastases Primary Care Provider: Shayne Fernandes ED Provider: Michael Joe Home Meds and New Rx's Prescriptions: New ciprofloxacin HCl 500 mg tablet 500 mg PO BID Qty: 20 RF: 0 metronidazole [Flagyl] 500 mg tablet 500 mg PO TID 10 Days Qty: 30 RF: 0 No Action fluoxetine 40 mg Capsule 40 mg PO DAILY RF: 0 clonazepam 1 mg Tablet 1 mg PO HS RF: 0 tamsulosin 0.4 mg Capsule 0.4 mg PO DAILY RF: 0 potassium chloride 20 mEq Tablet Extended Release 20 meq PO DAILY RF: 0 Trelegy Ellipta 100-62.5-25 mcg Blister With Device 1 inh Inhalation DAILY RF: 0 morphine 30 mg Tablet 30 mg PO BID RF: 0 prochlorperazine maleate 10 mg Tablet 10 mg PO Q6H RF: 0 Discharge Instructions Instructions: Dehydration (ED) Additional Instructions: Please drink 10-12 cups of water per day. Please take your home Zofran as needed. Please take the antibiotics as directed. Please follow-up closely with your oncologist, please have a low threshold of return here to the emergency department for reevaluation if you have any worsening of your symptoms! if you notice any worsening of your symptoms, or any new symptoms such as vomiting, diarrhea, fever, chills, shortness of breath, chest pain, numbness, weakness, or fainting , please return immediately to the emergency department for reevaluation. Please follow up with your primary care provider as soon as possible for reassessment and reevaluation. As always, it was a pleasure participating in your medical care today. Referrals: Shayne Fernandes [Primary Care Provider] - Discharge Data Discharge Date/Time-TO BE ENTERED AT DEPARTURE: 12/08/18 16:22 Medical Decision Making This is a very pleasant 63-year-old male who presents today for evaluation of chest pain, mild abdominal pain and diarrhea. The patient has an unfortunate past medical history of cancer, with metastases, known celiac artery dissection, amongst other issues. Physical exam demonstrated initially elevated heart rate at 112, no signs of severe respiratory distress, patient was afebrile, O2 sats were excellent. He demonstrated mild crackles in the lungs and mild tenderness throughout the abdomen. Patient had a broad differential initially including PE, colitis, infectious colitis, radiation colitis, appendicitis, or other acute intra-abdominal or intrathoracic pathology complicated by his cancer. Patient was rehydrated with 2-3 L of normal saline. Laboratory workup was surprisingly relatively benign. Electrolytes were relatively unremarkable. Patient had no significant white count, no bandemia, and minimal right shift. CT scan does show evidence of mild thickening of the colonic wall, suggesting potential inflammatory versus infectious colitis. C. difficile is positive. The patient's pain is mild as he states that, he is feeling much better at this time rehydration, and laboratory workup shows no evidence of bandemia, significant white count with significant left shift, we can start with oral and IV Cipro Flagyl. At this point in his clinical course he does not show evidence of severe colitis, severe infection, abscess or other abnormality. I discussed with the patient admission, however as the patient is feeling better, he states that he would like to go home and be comfortable there. Given his chronic medical conditions, and the whole picture in general, we did discuss risks and benefits of this, the patient states that he understands, and would like to go home. He also clearly states that if it does get worse, if his symptoms do not improve with the Cipro Flagyl, he feels dehydrated or has worsening pain he will return immediately. Discussed red flags for which to return the importance of close follow-up with oncology and his PCP. I have extensively reviewed the treatment plan and discharge instructions with the patient and their family. I have addressed all patient concerns at this time. The patient and family was made aware of what symptoms to monitor for that would warrant a return to the emergency department. Discussed the plan with the patient and family, they demonstrate verbal understanding and agreement with our assessment and plan at this time. Multiple chronic problems on CT with some acute patient would like to go home, given antibiotics for diverticulitis/collided EKG 10: 16 Rate 110, intervals normal, sinus tachycardia, no significant ST elevations or depressions, inverted T wave is present in V1, small Q wave in lead III. No other significant abnormalities CTA OF THE THORAX, ABDOMEN AND PELVIS: CT angiography was performed with multi slice acquisition and multi planar and 3D reconstruction. The study was conducted according to the usual protocol with an intravenous administration of 100 cc's of Omnipaque 350. CTA THORAX: Again demonstrated are the diffuse emphysematous and fibrotic changes in the lungs. Since the previous study there has been interval development of a 3.1 x 5.5 cm pleural based posterior right lower lobe mass. Again noted are masses in the anterior portion of the right lower lobe and in the right middle lobe. Both of which appear somewhat diminished in size when compared with the previous study. There is pleural thickening. There is no definite pleural effusion. Right hilar adenopathy is demonstrated. Also there is evidence of mediastinal adenopathy. The heart is not enlarged. There is a small pericardial effusion. There is no evidence of an aortic aneurysm. Small to moderate sized right pericardial effusion. SUMMARY: Severe bilateral chronic lung disease is demonstrated. Right lung masses are identified. There is right hilar adenopathy and a small to moderate sized right pericardial effusion is demonstrated. CTA ABDOMEN AND PELVIS: Note is made of diffuse bony metastases with interval progression when compared with the previous examination. Compression fractures of T12, T11 are identified. Faint radiolucencies and surrounding areas of increased absorption are demonstrated in the right hepatic lobe anteriorly likely representing metastatic disease. The gallbladder is intact. There are no gallstones. There is no evidence of ductal dilatation. The pancreas is intact. There are bilateral renal cysts. The left adrenal is normal. There is a heterogeneous ovoid mass measuring 2.6 x 2.2 cm in the right adrenal gland, unchanged when compared with the prior images. There is no evidence of bowel obstruction, however, there is, allowing for the absence of contrast material, bowel wall thickening involving the ascending and transverse colon. There is nothing to suggest an acute appendix. There is no evidence of free fluid or free air in the intraperitoneal space. The bladder is intact. The reproductive organs as visualized appear intact. CONCLUSION: There is no evidence of an aortic aneurysm. Again noted are the findings suggesting a dissection of the proximal celiac axis with no appreciable interval change when compared with the previous examination and no evidence of a high grade stenosis. As noted above diffuse bony metastases involving primarily the thoracic spine with scattered small regions of sclerosis in the lumbar spine are demonstrated. Note is made of a right adrenal mass unchanged. 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 The finding unchanged. Diffuse bony metastatic disease is demonstrated. Note is also made of colonic wall thickening involving the transverse and descending segments which could represent inflammatory or infectious disease HPI General Date/Time Provider Initiated Documentation: 12/08/18 10:14 . 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 the patient presents today with complaint of diarrhea. Patient states that for last 3 days he has had mild diarrhea but only 2-3 episodes per day, and with the being semi-formed in nature. He denies any blood,, melena, acholic stool. He also does admit to mild associated chest pain with shortness of breath for the last 2-3 days aswell . He denies a significant cough. He has had an increased desire for oxygen at home. He denies any recent antibiotics. He denies any recent foreign travel. He continues to receive chemotherapy. He denies any other sick contacts with similar symptoms. He admits to very mild generalized abdominal pain. He denies any hemoptysis, fever, chills, vomiting, arm pain, neck pain, shoulder pain. He denies any other modifying factors. Rela elmer Data Home Medications Medication Instructions Recorded Confirmed clonazepam 1 mg PO HS 08/12/18 12/09/18 fluoxetine 40 mg PO DAILY 08/12/18 12/09/18 tamsulosin 0.4 mg PO DAILY 08/12/18 12/09/18 ciprofloxacin HCl 500 mg PO BID #20 tab 12/08/18 12/09/18 metronidazole [Flagyl] 500 mg PO TID 10 Days #30 tab 12/08/18 12/09/18 [id number] 1 inh INHALATION DAILY 12/09/18 12/09/18 [Trelegy Ellipta] morphine 30 mg PO BID 12/09/18 12/09/18 potassium chloride 20 meq PO DAILY 12/09/18 12/09/18 prochlorperazine maleate 10 mg PO Q6H 12/09/18 12/09/18 Previous Rx's Medication Instructions Recorded ciprofloxacin HCl 500 mg PO BID #20 tab 12/08/18 metronidazole [Flagyl] 500 mg PO TID 10 Days #30 tab 12/08/18 Allergies Allergy/AdvReac Type Severity Reaction Status Date / Time Penicillins Allergy Severe Unverified 12/09/18 11:25 General Stated Complaint: Abd Prob LUCY: 3 Review of Systems Review of Systems All systems reviewed & are unremarkable except as noted in HPI and below PFSH Social History Smoking/Tobacco Use Status: Former Tobacco Use Quit Date: 07/18/19 Alcohol Intake: never Substance use type: does not use Do you feel safe at home: Yes Do you feel safe in your relationship?: Yes Additional Social history: quit smoking 2018 Exam Narrative Exam Narrative: 1.Const: Well-nourished, Well-developed, appearing stated age 2.Eyes: PERRL, no conjunctival injection, and symmetrical lids. 3.ENT: Atraumatic external nose and ears. Moist MM. Neck: Symmetric, trachea midline, No thyromegaly. 4.CVS: +S1/S2, No murmurs or gallops. Peripheral pulses 2+ and equal in all extremities. Brisk capillary refill in all extremities. 5.RESP: Unlabored respiratory effort. Mild crackles in the bases. No wheezes, no rhonchi. 6.GI: Soft, nondistended, no guarding, no rebound. Mild tenderness throughout. Bowel sounds are present. No flank or CVA tenderness. 7.MSK: Normocephalic/Atraumatic, Extremities w/o deformity or ttp No cyanosis or clubbing, Normal movement of all extremities 8.Skin: Warm, Dry. No rashes or lesions. 9.Neuro: analysis engineer II-XII grossly intact. Sensation grossly intact, no focal neurolo gic deficits. 10.Psych: (AAO) x3. Appropriate mood and affect Course Vital Signs Temperature 36.7 C 12/08/18 10:07 Pulse 112 H 12/08/18 10:07 Respiratory Rate 28 H 12/08/18 10:07 Blood Pressure 135/89 12/08/18 10:07 Pulse Oximetry 98 12/08/18 10:07 Temperature 36.7 C 12/08/18 10:07 Temperature Source Skin 12/08/18 10:07 Pulse 112 H 12/08/18 10:07 Respiratory Rate 28 H 12/08/18 10:07 Blood Pressure 135/89 12/08/18 10:07 Blood Pressure Position Supine 12/08/18 10:07 Pulse Oximetry 98 12/08/18 10:07 Oxygen Delivery Method Nasal Cannula 12/08/18 10:07 Oxygen Flow Rate 2 12/08/18 10:07 Pain Level 4 12/08/18 10:07
[2018-12-08] MEDS: Normal Saline 1,000 ML 1000 ML IV ×2 (10:56→14:00)
[2018-12-08] MEDS: HYDROmorphone 2 MG/ML VIAL 1 MG IVP (10:56)
[2018-12-08 11:14] LABS: Lactate-non-spesis 0.6 mmol/l (0.6-1.4)
[2018-12-08 11:19] LABS: Abs Immature Grans 0.05 k/cumm (0.0-0.09); Absolute Basophil Count 0.01 k/cumm (0.0-0.2); Absolute Lymphocyte Count 0.59 k/cumm (1.2-3.4); Absolute Monocyte Count 0.38 k/cumm (0.11-0.7); Absolute Neutrophil Count 8.46 k/cumm (1.2-6.7); Basophils % 0.1; HCT 27.3 % (40.0-50.0); HGB 8.9 g/dL (13.5-17.5); Immature Grans % 0.5; Lymphocytes % 6.2; Mean Corp. HGB Concentration 32.6 g/dL (32.0-36.0); Mean Corpuscular Hemoglobin 35.3 pg (27.0-33.0); Mean Corpuscular Volume 108.3 fL (80-95); Mean Platelet Volume 9.6 fL (8.0-11.0); Neutrophils % 89.2; Platelet Count 154 x1000/uL (130-400); RBC 2.52 m/cumm (4.50-6.00); RBC Distribution Width 15.4 % (11.8-14.1); White Blood Cell Count 9.49 k/cumm (4.4-10.8)
[2018-12-08 11:29] LABS: PTT Activated 26.8 sec (21.0-31.4)
[2018-12-08 11:44] LABS: Anisocytosis 2+; Diff Comment RBC Morph Reviewed; Hypochromasia 1+; Macrocytosis 2+
[2018-12-08 11:45] LABS: Microcytosis 1+
[2018-12-08 11:51] LABS: ALT 21 U/L (12-78); AST 19 U/L (15-37); Albumin 2.5 g/dL (3.4-5.0); Alkaline Phosphatase 155 U/L (46-116); Anion Gap 11.3 mmol/L (3-11); BUN 28 mg/dL (7-18); Bilirubin, Total 0.6 mg/dL (0.2-1.0); CO2 22.7 mmol/L (21.0-32.0); CREATININE 0.86 mg/dL (0.70-1.30); Calcium 8.6 mg/dL (8.5-10.1); Chloride 99 mmol/L (98-107); Glucose 113 mg/dL (70-100); NT-proBNP 123 pg/mL; Potassium 4.2 mmol/L (3.5-5.1); Sodium 133 mmol/L (136-145); TSH (W/Ref FT4) 0.65 uIU/mL (0.358-3.74); Total Protein 6.6 g/dL (6.4-8.2)
[2018-12-08 11:52] LABS: Troponin I < 0.02 ng/mL (0.00-0.06)
[2018-12-08 12:02] LABS: Bilirubin Negative (Negative); Blood Small (Negative); Clarity Clear; Glucose Negative (Negative); Ketones Negative (Negative); Leukocyte Esterase Negative (Negative); Nitrite Negative (Negative); Specific Gravity 1.025 (1.005-1.025); Urobilinogen 0.2 EU/dL (Up TO 0.2); pH 5.5 (5-8)
[2018-12-08 12:14] LABS: Bacteria Negative HPF (Negative); Crystals Few Amorphous HPF (Negative); Epithelial Cells Rare HPF (Negative); Mucus Negative (Negative); RBC 0-2 (0-2); WBC 0-2 HPF (0-5)
[2018-12-08 12:15] LABS: C & S Indicated? No; Casts 0-2 Fine Granular LPF (Negative)
[2018-12-08] MEDS: Omnipaque 350 MG/ML 100 ML BTL IJ (12:24)
--- NOTE | 2018-12-08 12:25 | DI.CT_ITS ---
SYMPTOMS/DIAGNOSIS: RLQ ABD PAIN, DIARRHEA, CANCER, HX CELIAC ART. DISEASE CTA OF THE THORAX, ABDOMEN AND PELVIS: CT angiography was performed with multi slice acquisition and multi planar and 3D reconstruction. The study was conducted according to the usual protocol with an intravenous administration of 100 cc's of Omnipaque 350. CTA THORAX: Again demonstrated are the diffuse emphysematous and fibrotic changes in the lungs. Since the previous study there has been interval development of a 3.1 x 5.5 cm pleural based posterior right lower lobe mass. Again noted are masses in the anterior portion of the right lower lobe and in the right middle lobe. Both of which appear somewhat diminished in size when compared with the previous study. There is pleural thickening. There is no definite pleural effusion. Right hilar adenopathy is demonstrated. Also there is evidence of mediastinal adenopathy. The heart is not enlarged. There is a small pericardial effusion. There is no evidence of an aortic aneurysm. Small to moderate sized right pericardial effusion. SUMMARY: Severe bilateral chronic lung disease is demonstrated. Right lung masses are identified. There is right hilar adenopathy and a small to moderate sized right pericardial effusion is demonstrated. CTA ABDOMEN AND PELVIS: Note is made of diffuse bony metastases with interval progression when compared with the previous examination. Compression fractures of T12, T11 are identified. Faint radiolucencies and surrounding areas of increased absorption are demonstrated in the right hepatic lobe anteriorly likely representing metastatic disease. The gallbladder is intact. There are no gallstones. There is no evidence of ductal dilatation. The pancreas is intact. There are bilateral renal cysts. The left adrenal is normal. There is a heterogeneous ovoid mass measuring 2.6 x 2.2 cm in the right adrenal gland, unchanged when compared with the prior images. There is no evidence of bowel obstruction, however, there is, allowing for the absence of contrast material, bowel wall thickening involving the ascending and transverse colon. There is nothing to suggest an acute appendix. There is no evidence of free fluid or free air in the intraperitoneal space. The bladder is intact. The reproductive organs as visualized appear intact. CONCLUSION: There is no evidence of an aortic aneurysm. Again noted are the findings suggesting a dissection of the proximal celiac axis with no appreciable interval change when compared with the previous examination and no evidence of a high grade stenosis. As noted above diffuse bony metastases involving primarily the thoracic spine with scattered small regions of sclerosis in the lumbar spine are demonstrated. Note is made of a right adrenal mass unchanged. 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 The finding unchanged. Diffuse bony metastatic disease is demonstrated. Note is also made of colonic wall thickening involving the transverse and descending segments which could represent inflammatory or infectious disease.
[2018-12-08] MEDS: metroNIDAZOLE 500 MG/100 ML BAG 100 MG IVPB (13:40)
[2018-12-08] MEDS: CIPROFLOXACIN 400 MG/200 ML BAG 200 MG IVPB (14:49)
[2018-12-08] MEDS: Normal Saline Flush 10 ML SYR 20 ML IVP (16:04)
[2018-12-08] MEDS: Heparin 500 UNITS/5 ML SYRINGE (16:05)
[2018-12-09 10:35] LABS: Campylobacter PCR SEE COMMENTS; Salmonella PCR SEE COMMENTS; Shiga Toxin PCR SEE COMMENTS; Shigella/Enteroinvasive Ecoli SEE COMMENTS
== END 2018-12-08 16:22 | disposition home or self-care (01) ==
PROVIDERS: Emergency Provider Student in an Organized Health Care Education/Training Program; PCP Internal Medicine
DX: K52.9 Noninfective gastroenteritis and colitis, unspecified (principal); E86.0 Dehydration; R07.9 Chest pain, unspecified; C34.91 Malignant neoplasm of unspecified part of right bronchus or lung; C79.51 Secondary malignant neoplasm of bone; Z92.21 Personal history of antineoplastic chemotherapy
CPT/HCPCS: 36415; 74177; 80053; 87329; 87505; 93005; 96361; 96365; 96367; 96375; 99285; 81003; 81015; 83605; 83880; 84443; 84484; 85025; 85610; 85730; 87324; 93010; J0744; J3490

== ENCOUNTER 2018-12-09 11:06 | Emergency (ER) | payer BC, SELFPAY ==
[2018-12-09] VITALS (21 sets, daily range): BP systolic 99–123; BP diastolic 64–77; PULSE 82–101; RESP 9–20; TEMP 36.6–36.8; O2SAT 91–99
--- NOTE | 2018-12-09 11:58 | ED.GENADUL_ITS ---
Discharge Plan Disposition Patient Disposition: [facility] Condition: Good Discharge Details Chief Complaint: Nausea/Vomit/Diar Clinical Impression: Colitis, C. difficile colitis, Diarrhea Primary Care Provider: Shayne Fernandes ED Provider: Michael Joe Home Meds and New Rx's Prescriptions: No Action fluoxetine 40 mg Capsule 40 mg PO DAILY RF: 0 clonazepam 1 mg Tablet 1 mg PO HS RF: 0 tamsulosin 0.4 mg Capsule 0.4 mg PO DAILY RF: 0 ciprofloxacin HCl 500 mg tablet 500 mg PO BID Qty: 20 RF: 0 metronidazole [Flagyl] 500 mg tablet 500 mg PO TID 10 Days Qty: 30 RF: 0 potassium chloride 20 mEq Tablet Extended Release 20 meq PO DAILY RF: 0 Trelegy Ellipta 100-62.5-25 mcg Blister With Device 1 inh Inhalation DAILY RF: 0 morphine 30 mg Tablet 30 mg PO BID RF: 0 prochlorperazine maleate 10 mg Tablet 10 mg PO Q6H RF: 0 Medical Decision Making This is a very pleasant 63-year-old male with an unfortunate past medical history of lung cancer receiving active chemotherapy, stable splenic artery dissection, multiple metastases, Mycobacterium avium complex historically, who presents today for evaluation of diarrhea for the last 3-4 days. He was seen and assessed in the ED yesterday, initially tachycardic with mild chest pain, as well as mild abdominal pain with nonbloody diarrhea. He had not been on antibiotics recently. Out of concern for PE in addition to acute abdominal pathologies CT scan was ordered demonstrates a large right-sided lung mass, as well as colitis. Stool culture studies not returned at the time of discharge. Out of concern for C. difficile versus other infectious colitis velia carter was started on oral Cipro and Flagyl. We had a long discussion with the patient yesterday regarding his life goals, prognosis, and desires for inpatient versus outpatient therapy. Patient at that time made it very clear that he would like to be at home and comfortable if at all possible. He was able to tolerate p.o. well, pain was well controlled and he was hemodynamically stable. Respecting his wishes he was discharged home with recommended close follow-up. Patient had mild to moderate worsening of his diarrhea throughout the night had continued episodes. No vomiting. He was able to continue to take p.o. fluids. His oncologist called him this morning with the results of his C. difficile coming back positive, and recommend he immediately come to the ER for further evaluation. Exam demonstrates a benign appearing belly, and much more improved vital signs compared with yesterday. However with the patient's continued diarrhea, and lack of improvement with oral Cipro and Flagyl we have decided to enhance the treatment with oral vancomycin. Oncology recommends admission still, at this time the patient is willing to be admitted. There are no beds currently available here or in [place]. We have contacted [facility] and they do have beds available. We are awaiting callback from the hospitalist. Laboratory workup demonstrates slight improvement of labs compared to yesterday with a white count of 5.25, hemoglobin slightly low at 7.7. Platelets lower at 97. Electrolytes normal. 1:37 PM I did contact and discussed the case with him. He agrees with the current assessment and plan has excepted the patient for admission. I did discuss transport via private vehicle, and at this time family states that they do not feel comfortable with this at this time and would like to go by ambulance. We will have [facility] transport the patient. I have extensively reviewed the treatment plan with the patient. I have addressed all patient concerns at this time. I have also discussed the plan with the admitting physician and they agree with the current assessment and plan and have agreed to assume responsibility for the patient. All parties demonstrate verbal understanding and agreement with our assessment and plan at this time. CTA THORAX: Again demonstrated are the diffuse emphysematous and fibrotic changes in the lungs. Since the previous study there has been interval development of a 3.1 x 5.5 cm pleural based posterior right lower lobe mass. Again noted are masses in the anterior portion of the right lower lobe and in the right middle lobe. Both of which appear somewhat diminished in size when compared with the previous study. There is pleural thickening. There is no definite pleural effusion. Right hilar adenopathy is demonstrated. Also there is evidence of mediastinal adenopathy. The heart is not enlarged. There is a small pericardial effusion. There is no evidence of an aortic aneurysm. Small to moderate sized right pericardial effusion. SUMMARY: Severe bilateral chronic lung disease is demonstrated. Right lung masses are identified. There is right hilar adenopathy and a small to moderate sized right pericardial effusion is demonstrated. CTA ABDOMEN AND PELVIS: Note is made of diffuse bony metastases with interval progression when compared with the previous examination. Compression fractures of T12, T11 are id entified. Faint radiolucencies and surrounding areas of increased absorption are demonstrated in the right hepatic lobe anteriorly likely representing metastatic disease. The gallbladder is intact. There are no gallstones. There is no evidence of ductal dilatation. The pancreas is intact. There are bilateral renal cysts. The left adrenal is normal. There is a heterogeneous ovoid mass measuring 2.6 x 2.2 cm in the right adrenal gland, unchanged when compared with the prior images. There is no evidence of bowel obstruction, however, there is, allowing for the absence of contrast material, bowel wall thickening involving the ascending and transverse colon. There is nothing to suggest an acute appendix. There is no evidence of free fluid or free air in the intraperitoneal space. The bladder is intact. The reproductive organs as visualized appear intact. CONCLUSION: There is no evidence of an aortic aneurysm. Again noted are the findings suggesting a dissection of the proximal celiac axis with no appreciable interval change when compared with the previous examination and no evidence of a high grade stenosis. As noted above diffuse bony metastases involving primarily the thoracic spine with scattered small regions of sclerosis in the lumbar spine are demonstrated. Note is made of a right adrenal mass unchanged. 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 The finding unchanged. Diffuse bony metastatic disease is demonstrated. Note is also made of colonic wall thickening involving the transverse and descending segments which could represent inflammatory or infectious disease. HPI General Date/Time Provider Initiated Documentation: 12/09/18 11:15 . HPI Narrative: This is a 63-year-old male with a past medical history of Mycobacterium avium complex, COPD, hemochromatosis, small cell lung cancer who is receiving chemotherapy with carboplatin and etoposide who receives his oncology management at [facility], as well as a splenic artery dissection, and metastases. The patient was seen and evaluated yesterday, he had symptoms of diarrhea for 2-3 days. He had been having roughly 4 or 5 bowel movements per day. He denied any blood. He had some mild abdominal pain as well as chest pain shortness of breath and tachycardia. He had not been on any antibiotics recently. Laboratory workup at that time showed no significant white count, after fluid resuscitation he was hemodynamically stable. CT scan showed evidence of worsening metastases and lung lesions, however no evidence of pulmonary embolism. He did have colitis, but no evidence of intra-abdominal abscess. No other significant acute pathology at that time. The patient had no bowel movements here in the ER until just prior to discharge. Differential for his colitis including C. difficile in addition to generalized infectious etiologies. The patient was given an IV dose of Cipro and Flagyl, as well as oral Flagyl and Cipro to cover for C. difficile or other infectious etiologies. We had a long discussion with the patient regarding admission, risks and benefits of discharge, and the patient's desires, in conjunction with his chronic prognosis with his cancer, and his desire for comfort. They are shared decision making process patient requested to be discharged with a low threshold for return, and prompt follow-up with oncology. In the morning the patient was contacted by his oncologist who noticed that the C. difficile results had returned and was positive, he was unaware that the patient had been started on oral antibiotics. He recommended that the patient come to the ER for further evaluation. Of note unfortunately the patient has had increase in his diarrhea since he was discharged, his vitals are notably improved compared to yesterday however the diarrhea has worsened. No new blood, no worsening abdominal pain. Patient denies any vomiting and has been able to tolerate p.o. He has no other complaints, no additional modifying factors. He has been taking the medication as directed. Related Data Home Medications Medication Instructions Recorded Confirmed clonazepam 1 mg PO HS 08/12/18 12/09/18 fluoxetine 40 mg PO DAILY 08/12/18 12/09/18 tamsulosin 0.4 mg PO DAILY 08/12/18 12/09/18 ciprofloxacin HCl 500 mg PO BID #20 tab 12/08/18 12/09/18 metronidazole [Flagyl] 500 mg PO TID 10 Days #30 tab 12/08/18 12/09/18 [id number] 1 inh INHALATION DAILY 12/09/18 12/09/18 [Trelegy Ellipta] morphine 30 mg PO BID 12/09/18 12/09/18 potassium chloride 20 meq PO DAILY 12/09/18 12/09/18 prochlorperazine maleate 10 mg PO Q6H 12/09/18 12/09/18 Previous Rx's Medication Instructions Recorded ciprofloxacin HCl 500 mg PO BID #20 tab 12/08/18 metronidazole [Flagyl] 500 mg PO TID 10 Days #30 tab 12/08/18 Allergies Allergy/AdvReac Type Severity Reaction Status Date / Time Penicillins Allergy Severe Unverified 12/09/18 11:25 General Stated Complaint: Nausea/Vomit/Diar LUCY: 3 Review of Systems Review of Systems All systems reviewed & are unremarkable except as noted in HPI and below PFSH Social History Smoking/Tobacco Use Status: Former Tobacco Use Quit Date: 07/18/19 Alcohol Intake: never Substance use type: does not use Do you feel safe at home: Yes Do you feel safe in your relationship?: Yes Additional Social history: quit smoking 2018 Exam Narrative Exam Narrative: 1.Const: Well-nourished, Well-developed, appearing stated age 2.Eyes: PERRL, no conjunctival injection, and symmetrical lids. 3.ENT: Atraumatic external nose and ears. Moist MM. Neck: Symmetric, trachea midline, No thyromegaly. 4.CVS: +S1/S2, No murmurs or gallops. Peripheral pulses 2+ and equal in all extremities. Brisk capillary refill in all extremities. 5.RESP: Unlabored respiratory effort. Clear to auscultation bilaterally. No wheezes rales or rhonchi 6.GI: Soft, Nondistended, No hepatosplenomegaly. No guarding or rebound. Minimal generalized tenderness. 7.MSK: Normocephalic/Atraumatic, Extremities w/o deformity or ttp No cyanosis or clubbing, Normal movement of all extremities 8.Skin: Warm, Dry. No rashes or lesions. 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 Sensation grossly intact, no focal neurologic deficits. 10.Psych: (AAO) x3. Appropriate mood and affect Course Vital Signs Temperature 36.6 C 12/09/18 11:14 Pulse 101 H 12/09/18 11:14 Respiratory Rate 18 12/09/18 11:14 Blood Pressure 114/72 12/09/18 11:14 Pulse Oximetry 98 12/09/18 11:14 Temperature 36.6 C 12/09/18 11:14 Temperature Source Skin 12/09/18 11:14 Pulse 88 12/09/18 11:35 Respiratory Rate 9 L 12/09/18 11:35 Respiratory Effort 12/09/18 11:33 Blood Pressure 119/77 12/09/18 11:35 Pulse Oximetry 98 12/09/18 11:35 Oxygen Delivery Method Nasal Cannula 12/09/18 11:35 Oxygen Flow Rate 2 12/09/18 11:35 Pain Level 2 12/09/18 11:14
[2018-12-09] MEDS: Normal Saline 1,000 ML 1000 ML IV (12:10)
[2018-12-09] MEDS: Vancomycin 125 MG CAP PO (12:17)
[2018-12-09] MEDS: HYDROmorphone 2 MG/ML VIAL 1 MG IVP (12:20)
[2018-12-09 12:25] LABS: HCT 23.5 % (40.0-50.0); HGB 7.7 g/dL (13.5-17.5); Mean Corp. HGB Concentration 32.8 g/dL (32.0-36.0); Mean Corpuscular Hemoglobin 35.3 pg (27.0-33.0); Mean Corpuscular Volume 107.8 fL (80-95); Mean Platelet Volume 9.6 fL (8.0-11.0); RBC 2.18 m/cumm (4.50-6.00); RBC Distribution Width 15.1 % (11.8-14.1); White Blood Cell Count 5.25 k/cumm (4.4-10.8)
[2018-12-09 12:35] LABS: ALT 25 U/L (12-78); AST 27 U/L (15-37); Albumin 2.3 g/dL (3.4-5.0); Alkaline Phosphatase 141 U/L (46-116); Anion Gap 10.7 mmol/L (3-11); BUN 15 mg/dL (7-18); Bilirubin, Total 0.4 mg/dL (0.2-1.0); CO2 21.3 mmol/L (21.0-32.0); CREATININE 0.69 mg/dL (0.70-1.30); Calcium 8.4 mg/dL (8.5-10.1); Chloride 102 mmol/L (98-107); Glucose 105 mg/dL (70-100); Potassium 3.5 mmol/L (3.5-5.1); Sodium 134 mmol/L (136-145)
[2018-12-09 12:43] LABS: Absolute Neutrophil Count 4.31 k/cumm (1.2-6.7)
[2018-12-09 12:44] LABS: Absolute Lymphocyte Count 0.68 k/cumm (1.2-3.4); Absolute Monocyte Count 0.26 k/cumm (0.11-0.7); Diff Comment Manual Differential
[2018-12-09 12:45] LABS: Anisocytosis 1+; Macrocytosis 2+; Platelet Count 97 x1000/uL (130-400)
[2018-12-09] MEDS: Heparin 500 UNITS/5 ML SYRINGE (14:03)
== END 2018-12-09 14:15 | disposition short-term general hospital (02) ==
PROVIDERS: Emergency Provider Student in an Organized Health Care Education/Training Program; PCP Internal Medicine
DX: A04.72 Enterocolitis due to Clostridium difficile, not specified as recurrent (principal)
CPT/HCPCS: 36415; 80053; 96361; 96374; 99284; 85025

== ENCOUNTER 2019-01-03 12:38 | Outpatient (RCR) | payer BC, SELFPAY ==
[2019-01-03] MEDS: Heparin 500 UNITS/5 ML SYRINGE IV (12:40)
[2019-01-03] MEDS: Normal Saline Flush 10 ML SYR IVP (12:40)
[2019-01-03 13:06] LABS: Abs Immature Grans 0.27 k/cumm (0.0-0.09); Absolute Basophil Count 0.02 k/cumm (0.0-0.2); Absolute Monocyte Count 2.11 k/cumm (0.11-0.7); Absolute Neutrophil Count 18.37 k/cumm (1.2-6.7); Basophils % 0.1; HCT 34.5 % (40.0-50.0); HGB 11.8 g/dL (13.5-17.5); Immature Grans % 1.2; Lymphocytes % 7.3; Mean Corp. HGB Concentration 34.2 g/dL (32.0-36.0); Mean Corpuscular Hemoglobin 35.5 pg (27.0-33.0); Mean Corpuscular Volume 103.9 fL (80-95); Mean Platelet Volume 9.2 fL (8.0-11.0); Monocytes % 9.4; Platelet Count 292 x1000/uL (130-400); RBC 3.32 m/cumm (4.50-6.00); RBC Distribution Width 18.3 % (11.8-14.1)
[2019-01-03 13:09] LABS: Absolute Lymphocyte Count 1.64 k/cumm (1.2-3.4)
[2019-01-03 13:18] LABS: ALT 76 U/L (12-78); AST 51 U/L (15-37); Alkaline Phosphatase 171 U/L (46-116); Anion Gap 8.4 mmol/L (3-11); BUN 23 mg/dL (7-18); Bilirubin, Total 0.3 mg/dL (0.2-1.0); CO2 30.6 mmol/L (21.0-32.0); CREATININE 0.78 mg/dL (0.70-1.30); Calcium 9.2 mg/dL (8.5-10.1); Chloride 97 mmol/L (98-107); Glucose 113 mg/dL (70-100); LDH 379 U/L (85-227); Potassium 3.9 mmol/L (3.5-5.1); Sodium 136 mmol/L (136-145); Total Protein 7.2 g/dL (6.4-8.2)
[2019-01-03 13:43] LABS: Anisocytosis 2+; Diff Comment Diff Reviewed; Macrocytosis 3+; Polychromasia Present
== END 2019-01-10 23:59 | disposition home or self-care (01) ==
LOC: INF 12:38
PROVIDERS: PCP Internal Medicine; Visit Provider Internal Medicine
DX: C34.91 Malignant neoplasm of unspecified part of right bronchus or lung (principal); Z45.2 Encounter for adjustment and management of vascular access device
CPT/HCPCS: 36591; 80053; 83615; 85025

== ENCOUNTER 2019-01-17 09:34 | Outpatient (RCR) | payer BC, SELFPAY | END 2019-01-28 23:59 | disposition home or self-care (01) | LOC: INF 09:34 | PROVIDERS: PCP Internal Medicine; Visit Provider Internal Medicine | DX: R69 Illness, unspecified (principal) ==

== ENCOUNTER 2019-01-17 15:04 | Outpatient (CLI) | payer BC, SELFPAY ==
--- NOTE | 2019-01-17 14:28 | DI.RAD_ITS ---
SYMPTOMS/DIAGNOSIS: KNOWN BONE METS, BONE SCAN SHOWED LESION IN UPPER LEFT HUMERUS, EVALUATE BONE INTEGRITY RIGHT HUMERUS: The bone appears normally mineralized. No periosteal reaction or sclerotic lesion is seen. The soft tissues are unremarkable. LEFT HUMERUS: Two views. No sclerotic focus is seen. No periosteal reaction is identified. No acute fracture or dislocation is seen. The soft tissues are unremarkable.
== END 2019-01-17 15:24 ==
PROVIDERS: PCP Internal Medicine; Visit Provider Radiology Radiation Oncology
DX: C79.51 Secondary malignant neoplasm of bone (principal); C34.91 Malignant neoplasm of unspecified part of right bronchus or lung
CPT/HCPCS: 73060